=== PATIENT | male | born 2000 | race Two or more races ===

== ENCOUNTER 2022-08-15 14:19 | Inpatient (IN) | payer OTHER ==
[~2022-08-15] VITALS: Ht 177.8 cm; Wt 75.0 kg
[2022-08-15 16:44] LABS: BASOPHILS % (AUTO) 0.4 % (0.0-2.0); EOSINOPHILS % (AUTO) 1.6 % (1.0-6.0); HEMOGLOBIN 14.2 g/dL (13.5-17.5); LYMPHOCYTES # (AUTO) 1.6 K/uL (1.0-4.8); LYMPHOCYTES % (AUTO) 26.4 % (22.0-44.0); MEAN CORPUSCULAR HEMOGLOBIN 29.6 pg (26.0-34.0); MEAN CORPUSCULAR HGB CONC 33.9 G/dL (31.0-37.0); MEAN CORPUSCULAR VOLUME 87 fL (80-100); MONOCYTES # (AUTO) 0.5 K/uL (0.1-1.0); MONOCYTES % (AUTO) 7.5 % (2.0-9.0); NEUTROPHILS % (AUTO) 64.1 % (40.0-70.0); PLATELET COUNT (AUTO) 167 K/uL (150-450); RED BLOOD CELL COUNT(AUTO) 4.81 MIL/uL (4.50-5.90)
[2022-08-15 17:14] LABS: ANION GAP 10 mmol/L (8-16); CALCIUM, TOTAL 9.1 mg/dL (8.8-10.5); CARBON DIOXIDE 26 mmol/L (22-29); CHLORIDE 101 mmol/L (98-107); CREATININE 0.95 mg/dL (0.60-1.30); GLOMERULAR FILTR. RATE CALC > 60 mL/min (>60); GLUCOSE,RANDOM 82 mg/dL (70-110); POTASSIUM 3.8 mmol/L (3.5-5.1); SODIUM SERUM 137 mmol/L (136-145); UREA NITROGEN, BLOOD 22 mg/dL (7-18)
[2022-08-15 17:19] LABS: ALANINE AMINOTRANSFERASE 14 U/L (12-78); ALBUMIN 4.6 g/dL (3.4-5.0); ALKALINE PHOSPHATASE 78 U/L (46-116); ASPARTATE AMINOTRANSFERASE 20 U/L (15-37); BILIRUBIN,TOTAL 1.3 mg/dL (0.1-1.0); TOTAL PROTEIN, SERUM 8.4 g/dL (6.4-8.2)
[2022-08-15 20:35] LABS: COVID AG,FIA SOURCE NASAL SWAB
[2022-08-15] MEDS ORDERED: SODIUM CHLORIDE 0.9% 500 ML IV ONE (21:30)
[2022-08-15] MEDS ORDERED: MAGNESIUM HYDROXIDE SUSPENSION 30 ML UDCUP PO PRN (21:30)
[2022-08-15] MEDS ORDERED: IPRATROPIUM BROMIDE 0.5 MG/2.5 ML NEB SOLUTION NEB PRN (21:30)
[2022-08-15] MEDS ORDERED: ACETAMINOPHEN 325 MG TABLET PO PRN (21:30)
[2022-08-15] MEDS ORDERED: BISACODYL 10 MG RECTAL RECTAL SUPPOSITORY PR PRN (21:30)
[2022-08-15] MEDS ORDERED: ALBUTEROL SULFATE 2.5 MG/0.5 ML NEB SOLUTION NEB PRN (21:30)
[2022-08-15] MEDS ORDERED: ONDANSETRON HCL 4 MG/2 ML VIAL IVP PRN (21:30)
[2022-08-15] MEDS ORDERED: ZOLPIDEM TARTRATE 5 MG TABLET PO PRN (21:30)
[2022-08-15] MEDS ORDERED: DiphenhydrAMINE HCL 50 MG/ML VIAL IM ONE (22:15)
[2022-08-15] MEDS ORDERED: HALOPERIDOL LACTATE 5 MG/ML VIAL IM ONE (22:15)
[2022-08-15] MEDS ORDERED: LORazepam 2 MG/ML VIAL IM ONE (22:15)
[2022-08-15 23:21] VITALS: BP 109/53
[2022-08-16 05:00] VITALS: BP 118/67
[2022-08-16] MEDS: HEPARIN SODIUM,PORCINE 5,000 UNITS/ML VIAL SQ SCH ×4 (08:00→23:08)
[2022-08-16 08:51] VITALS: BP 103/55
[2022-08-16] MEDS ORDERED: PANTOPRAZOLE SODIUM 40 MG/VIAL IVP SCH (09:00)
[2022-08-16 10:48] LABS: AMPHET/METH SCREEN,URINE NEGATIVE (NEGATIVE); BARBITURATE SCREEN, URINE NEGATIVE (NEGATIVE); BENZODIAZEPINES SCREEN,URINE NEGATIVE (NEGATIVE); CANNABINOID SCREEN,URINE NEGATIVE (NEGATIVE); COCAINE SCREEN,URINE NEGATIVE (NEGATIVE); METHADONE SCREEN, URINE NEGATIVE (NEGATIVE); OPIATE SCREEN,URINE NEGATIVE (NEGATIVE)
[2022-08-16 10:50] LABS: PHENCYCLIDINE SCREEN,URINE NEGATIVE (NEGATIVE)
[2022-08-16 16:23] VITALS: BP 110/69
[2022-08-16 20:00] VITALS: BP 125/60
[2022-08-17] MEDS: HEPARIN SODIUM,PORCINE 5,000 UNITS/ML VIAL SQ SCH ×2 (08:00→16:00)
[2022-08-17] MEDS: PANTOPRAZOLE SODIUM 40 MG DR TABLET PO SCH (08:00)
[2022-08-17] MEDS ORDERED: LORazepam 2 MG/ML VIAL IM ONE (21:00)
[2022-08-17] MEDS ORDERED: DiphenhydrAMINE HCL 50 MG/ML VIAL IM ONE (21:00)
[2022-08-17] MEDS ORDERED: HALOPERIDOL LACTATE 5 MG/ML VIAL IM ONE (21:00)
[2022-08-18 05:44] VITALS: BP 100/50
[2022-08-18] MEDS: PANTOPRAZOLE SODIUM 40 MG DR TABLET PO SCH (08:00)
[2022-08-18] MEDS: HEPARIN SODIUM,PORCINE 5,000 UNITS/ML VIAL SQ SCH ×3 (08:00→16:00)
[2022-08-18 19:30] VITALS: BP 133/66
[2022-08-19] MEDS: HEPARIN SODIUM,PORCINE 5,000 UNITS/ML VIAL SQ SCH ×3 (08:00→16:00)
[2022-08-19] MEDS: PANTOPRAZOLE SODIUM 40 MG DR TABLET PO SCH (08:00)
[2022-08-19] MEDS ORDERED: HALOPERIDOL LACTATE 5 MG/ML VIAL IM ONE (17:30)
[2022-08-19] MEDS ORDERED: DiphenhydrAMINE HCL 50 MG/ML VIAL IM ONE (17:30)
[2022-08-19] MEDS ORDERED: LORazepam 2 MG/ML VIAL IM ONE (17:30)
[2022-08-19 21:33] VITALS: BP 106/58
[2022-08-20] MEDS: HEPARIN SODIUM,PORCINE 5,000 UNITS/ML VIAL SQ SCH ×4 (08:00→23:41)
[2022-08-20] MEDS: PANTOPRAZOLE SODIUM 40 MG DR TABLET PO SCH (08:00)
[2022-08-20 08:17] VITALS: BP 97/75
[2022-08-20] MEDS ORDERED: DiphenhydrAMINE HCL 50 MG/ML VIAL ONE (14:39)
[2022-08-20] MEDS ORDERED: HALOPERIDOL LACTATE 5 MG/ML VIAL ONE (14:39)
[2022-08-20] MEDS ORDERED: LORazepam 2 MG/ML VIAL ONE (14:40)
[2022-08-20] MEDS ORDERED: HALOPERIDOL LACTATE 5 MG/ML VIAL IM ONE (14:45)
[2022-08-20] MEDS ORDERED: LORazepam 2 MG/ML VIAL IM ONE (14:45)
[2022-08-20] MEDS ORDERED: DiphenhydrAMINE HCL 50 MG/ML VIAL IM ONE (14:45)
[2022-08-20 20:20] VITALS: BP 112/54
[2022-08-21] MEDS: HEPARIN SODIUM,PORCINE 5,000 UNITS/ML VIAL SQ SCH ×3 (08:00→23:19)
[2022-08-21] MEDS: PANTOPRAZOLE SODIUM 40 MG DR TABLET PO SCH (08:00)
[2022-08-21] MEDS ORDERED: HALOPERIDOL LACTATE 5 MG/ML VIAL IM ONE (22:45)
[2022-08-22] MEDS: PANTOPRAZOLE SODIUM 40 MG DR TABLET PO SCH (08:00)
[2022-08-22] MEDS: HEPARIN SODIUM,PORCINE 5,000 UNITS/ML VIAL SQ SCH (08:00)
== END 2022-08-22 15:27 | DRG 641 ==
LOC: EMS 14:23 → 6S 21:30
PROVIDERS: ADMIT Hospitalist; ATTEND Hospitalist
DX: E86.0 Dehydration (principal); F29 Unspecified psychosis not due to a substance or known physiological condition; R00.0 Tachycardia, unspecified; F94.0 Selective mutism; Z20.822 Contact with and (suspected) exposure to COVID-19; Z79.899 Other long term (current) drug therapy
CPT/HCPCS: 80053; 80307; 85025; 99285; C9113; G0480; J1200; J1630; J1644; J2060; J7040

== ENCOUNTER 2022-09-11 10:39 | Inpatient (IN) | payer OTHER ==
[~2022-09-11] VITALS: Ht 172.7 cm; Wt 60.3 kg
[2022-09-11 11:53] LABS: COVID AG,FIA SOURCE NASAL SWAB
[2022-09-11 12:02] LABS: ANION GAP 11 mmol/L (8-16); CALCIUM, TOTAL 9.4 mg/dL (8.8-10.5); CARBON DIOXIDE 31 mmol/L (22-29); CHLORIDE 105 mmol/L (98-107); CREATININE 1.03 mg/dL (0.60-1.30); GLOMERULAR FILTR. RATE CALC > 60 mL/min (>60); GLUCOSE,RANDOM 92 mg/dL (70-110); POTASSIUM 4.2 mmol/L (3.5-5.1); SODIUM SERUM 147 mmol/L (136-145); UREA NITROGEN, BLOOD 31 mg/dL (7-18)
[2022-09-11 12:06] LABS: BASOPHILS % (AUTO) 0.5 % (0.0-2.0); EOSINOPHILS % (AUTO) 3.2 % (1.0-6.0); HEMATOCRIT 43.9 % (41-53); HEMOGLOBIN 15.2 g/dL (13.5-17.5); LYMPHOCYTES # (AUTO) 1.6 K/uL (1.0-4.8); LYMPHOCYTES % (AUTO) 28.1 % (22.0-44.0); MEAN CORPUSCULAR HEMOGLOBIN 30.1 pg (26.0-34.0); MEAN CORPUSCULAR HGB CONC 34.6 G/dL (31.0-37.0); MEAN CORPUSCULAR VOLUME 87 fL (80-100); MONOCYTES # (AUTO) 0.4 K/uL (0.1-1.0); MONOCYTES % (AUTO) 6.5 % (2.0-9.0); NEUTROPHILS # (AUTO) 3.4 K/uL (1.8-7.7); NEUTROPHILS % (AUTO) 61.7 % (40.0-70.0); PLATELET COUNT (AUTO) 153 K/uL (150-450); RED BLOOD CELL COUNT(AUTO) 5.03 MIL/uL (4.50-5.90); RED CELL DISTRIBUTION WIDTH 13.5 % (11.5-14.5)
[2022-09-11 12:08] LABS: ALANINE AMINOTRANSFERASE 30 U/L (12-78); ALKALINE PHOSPHATASE 76 U/L (46-116); ASPARTATE AMINOTRANSFERASE 28 U/L (15-37); BILIRUBIN,TOTAL 1.4 mg/dL (0.1-1.0); PHOSPHORUS 4.1 mg/dL (2.5-4.9); TOTAL PROTEIN, SERUM 8.2 g/dL (6.4-8.2)
[2022-09-11 12:13] LABS: INR 1.1 (0.9-1.1); PROTHROMBIN TIME 12.1 SEC (9.4-11.6)
[2022-09-11] MEDS: MULTIVITAMINS WITH MINERALS, THERAPEUTIC TABLET PO SCH (12:15)
[2022-09-11] MEDS ORDERED: ONDANSETRON HCL 4 MG/2 ML VIAL IVP PRN (12:30)
[2022-09-11] MEDS ORDERED: BISACODYL 10 MG RECTAL RECTAL SUPPOSITORY PR PRN (12:30)
[2022-09-11] MEDS ORDERED: ACETAMINOPHEN 325 MG TABLET PO PRN (12:30)
[2022-09-11] MEDS ORDERED: MAGNESIUM HYDROXIDE SUSPENSION 30 ML UDCUP PO PRN (12:30)
[2022-09-11] MEDS: DEXTROSE 5%-0.45% SODIUM CHL 1,000 ML IV SCH (12:55)
[2022-09-11 20:58] VITALS: BP 105/58
[2022-09-11] MEDS: HEPARIN SODIUM,PORCINE 5,000 UNITS/ML VIAL SQ SCH (21:49)
[2022-09-12] MEDS: DEXTROSE 5%-0.45% SODIUM CHL 1,000 ML IV SCH (02:22)
[2022-09-12 05:19] VITALS: BP 118/70
[2022-09-12] MEDS ORDERED: *CLINICAL-PERIPHERAL PARENTERAL NUTRITION DOSING CLINICAL ONE (07:30)
[2022-09-12 07:46] VITALS: BP 122/72
[2022-09-12] MEDS: MULTIVITAMINS WITH MINERALS, THERAPEUTIC TABLET PO SCH (09:00)
[2022-09-12] MEDS: HEPARIN SODIUM,PORCINE 5,000 UNITS/ML VIAL SQ SCH ×2 (09:00→21:18)
[2022-09-12] MEDS: FAMOTIDINE 20 MG TABLET PO SCH (09:00)
[2022-09-12 11:00] LABS: ANION GAP 8 mmol/L (8-16); CALCIUM, TOTAL 9.6 mg/dL (8.8-10.5); CARBON DIOXIDE 30 mmol/L (22-29); CHLORIDE 110 mmol/L (98-107); CREATININE 1.02 mg/dL (0.60-1.30); GLOMERULAR FILTR. RATE CALC > 60 mL/min (>60); GLUCOSE,RANDOM 124 mg/dL (70-110); PHOSPHORUS 4.4 mg/dL (2.5-4.9); POTASSIUM 3.6 mmol/L (3.5-5.1); SODIUM SERUM 148 mmol/L (136-145); UREA NITROGEN, BLOOD 27 mg/dL (7-18)
[2022-09-12] MEDS: AA 4.25%/CALCIUM/LYTES/D5W 1,000 ML IV SCH (12:17)
[2022-09-12 20:12] VITALS: BP 121/79
[2022-09-13] MEDS: AA 4.25%/CALCIUM/LYTES/D5W 1,000 ML IV SCH (02:20)
[2022-09-13 02:28] VITALS: BP 112/91
[2022-09-13] MEDS: HEPARIN SODIUM,PORCINE 5,000 UNITS/ML VIAL SQ SCH ×3 (09:00→20:43)
[2022-09-13] MEDS: MULTIVITAMINS WITH MINERALS, THERAPEUTIC TABLET PO SCH (09:00)
[2022-09-13] MEDS: FAMOTIDINE 20 MG TABLET PO SCH (09:00)
[2022-09-13 20:38] VITALS: BP 94/56
[2022-09-14 05:38] VITALS: BP 90/57
[2022-09-14] MEDS: MULTIVITAMINS WITH MINERALS, THERAPEUTIC TABLET PO SCH (09:00)
[2022-09-14] MEDS: HEPARIN SODIUM,PORCINE 5,000 UNITS/ML VIAL SQ SCH ×2 (09:00→21:00)
[2022-09-14] MEDS: FAMOTIDINE 20 MG TABLET PO SCH (09:00)
[2022-09-14 20:14] VITALS: BP 121/52
[2022-09-15 05:19] VITALS: BP 125/66
[2022-09-15] MEDS: FAMOTIDINE 20 MG TABLET PO SCH (08:12)
[2022-09-15] MEDS: MULTIVITAMINS WITH MINERALS, THERAPEUTIC TABLET PO SCH (08:12)
[2022-09-15] MEDS: HEPARIN SODIUM,PORCINE 5,000 UNITS/ML VIAL SQ SCH ×2 (08:12→21:00)
[2022-09-15 16:32] VITALS: BP 85/52
[2022-09-15 17:26] VITALS: BP 115/66
[2022-09-15 21:32] VITALS: BP 114/52
[2022-09-16 05:33] VITALS: BP 128/79
[2022-09-16 07:37] VITALS: BP 122/76
[2022-09-16] MEDS: HEPARIN SODIUM,PORCINE 5,000 UNITS/ML VIAL SQ SCH ×2 (08:23→21:00)
[2022-09-16] MEDS: MULTIVITAMINS WITH MINERALS, THERAPEUTIC TABLET PO SCH (08:23)
[2022-09-16] MEDS: FAMOTIDINE 20 MG TABLET PO SCH (08:23)
[2022-09-17 04:30] VITALS: BP 147/90
[2022-09-17] MEDS: MULTIVITAMINS WITH MINERALS, THERAPEUTIC TABLET PO SCH (09:00)
[2022-09-17] MEDS: FAMOTIDINE 20 MG TABLET PO SCH (11:12)
[2022-09-17] MEDS: HEPARIN SODIUM,PORCINE 5,000 UNITS/ML VIAL SQ SCH (11:24)
[2022-09-17] MEDS ORDERED: HALOPERIDOL LACTATE 5 MG/ML VIAL IM ONE (11:30)
== END 2022-09-17 15:50 | DRG 640 ==
LOC: EMS 10:45 → 6S 17:59
PROVIDERS: ADMIT Psychiatry & Neurology Child & Adolescent Psychiatry; ATTEND Psychiatry & Neurology Child & Adolescent Psychiatry
DX: E87.0 Hyperosmolality and hypernatremia (principal); E43 Unspecified severe protein-calorie malnutrition; R64 Cachexia; F33.2 Major depressive disorder, recurrent severe without psychotic features; R62.7 Adult failure to thrive; F91.8 Other conduct disorders; F41.9 Anxiety disorder, unspecified; Z20.822 Contact with and (suspected) exposure to COVID-19; Z68.20 Body mass index [BMI] 20.0-20.9, adult; Z79.899 Other long term (current) drug therapy; Z76.5 Malingerer [conscious simulation]
CPT/HCPCS: 80048; 80053; 83735; 84100; 85025; 85610; 85730; 93005; 99285; J1630; J1644

== ENCOUNTER 2022-09-22 12:40 | Inpatient (IN) | payer OTHER ==
[~2022-09-22] VITALS: Ht 180.3 cm; Wt 71.4 kg
[2022-09-22] MEDS ORDERED: OLAN10TA74 PO (13:51)
[2022-09-22 14:01] LABS: COVID AG,FIA SOURCE NASOPHARYNGEAL
[2022-09-22 14:05] LABS: BASOPHILS % (AUTO) 0.4 % (0.0-2.0); EOSINOPHILS % (AUTO) 1.2 % (1.0-6.0); HEMATOCRIT 44.6 % (41-53); LYMPHOCYTES # (AUTO) 1.6 K/uL (1.0-4.8); LYMPHOCYTES % (AUTO) 24.2 % (22.0-44.0); MEAN CORPUSCULAR HEMOGLOBIN 29.1 pg (26.0-34.0); MEAN CORPUSCULAR HGB CONC 33.6 G/dL (31.0-37.0); MEAN CORPUSCULAR VOLUME 87 fL (80-100); MONOCYTES # (AUTO) 0.5 K/uL (0.1-1.0); MONOCYTES % (AUTO) 7.4 % (2.0-9.0); NEUTROPHILS # (AUTO) 4.5 K/uL (1.8-7.7); NEUTROPHILS % (AUTO) 66.8 % (40.0-70.0); PLATELET COUNT (AUTO) 163 K/uL (150-450); RED BLOOD CELL COUNT(AUTO) 5.16 MIL/uL (4.50-5.90); RED CELL DISTRIBUTION WIDTH 13.3 % (11.5-14.5)
[2022-09-22 14:12] LABS: ANION GAP 9 mmol/L (8-16); CALCIUM, TOTAL 9.7 mg/dL (8.8-10.5); CARBON DIOXIDE 27 mmol/L (22-29); CHLORIDE 97 mmol/L (98-107); CREATININE 0.86 mg/dL (0.60-1.30); GLOMERULAR FILTR. RATE CALC > 60 mL/min (>60); GLUCOSE,RANDOM 90 mg/dL (70-110); POTASSIUM 3.8 mmol/L (3.5-5.1); SODIUM SERUM 133 mmol/L (136-145); UREA NITROGEN, BLOOD 20 mg/dL (7-18)
[2022-09-22 14:17] LABS: ALANINE AMINOTRANSFERASE 26 U/L (12-78); ALBUMIN 4.5 g/dL (3.4-5.0); ALKALINE PHOSPHATASE 66 U/L (46-116); ASPARTATE AMINOTRANSFERASE 23 U/L (15-37); BILIRUBIN,TOTAL 0.7 mg/dL (0.1-1.0); TOTAL PROTEIN, SERUM 7.8 g/dL (6.4-8.2)
[2022-09-22 17:14] VITALS: BP 125/93
[2022-09-22] MEDS: DEXTROSE 5%-0.9% SODIUM CHL 1,000 ML IV SCH (17:45)
[2022-09-22] MEDS ORDERED: MAGNESIUM HYDROXIDE SUSPENSION 30 ML UDCUP PO PRN (17:45)
[2022-09-22] MEDS ORDERED: ONDANSETRON HCL 4 MG/2 ML VIAL IVP PRN (17:45)
[2022-09-22] MEDS ORDERED: ALBUTEROL SULFATE 2.5 MG/0.5 ML NEB SOLUTION NEB PRN (17:45)
[2022-09-22] MEDS ORDERED: IPRATROPIUM BROMIDE 0.5 MG/2.5 ML NEB SOLUTION NEB PRN (17:45)
[2022-09-22] MEDS ORDERED: BISACODYL 10 MG RECTAL RECTAL SUPPOSITORY PR PRN (17:45)
[2022-09-22 19:30] VITALS: BP 102/70
[2022-09-23 04:35] VITALS: BP 118/60
[2022-09-23] MEDS: DEXTROSE 5%-0.9% SODIUM CHL 1,000 ML IV SCH (07:05)
[2022-09-23 07:51] VITALS: BP 112/58
[2022-09-23] MEDS: HEPARIN SODIUM,PORCINE 5,000 UNITS/ML VIAL SQ SCH ×4 (08:00→22:43)
[2022-09-23] MEDS: PANTOPRAZOLE SODIUM 40 MG DR TABLET PO SCH (09:00)
[2022-09-23 19:29] VITALS: BP 114/57
[2022-09-24 05:10] VITALS: BP 96/49
[2022-09-24] MEDS: HEPARIN SODIUM,PORCINE 5,000 UNITS/ML VIAL SQ SCH ×3 (08:00→23:15)
[2022-09-24] MEDS: PANTOPRAZOLE SODIUM 40 MG DR TABLET PO SCH (09:00)
[2022-09-24 09:34] VITALS: BP 106/55
[2022-09-24] MEDS: DEXTROSE 5%-0.9% SODIUM CHL 1,000 ML IV SCH ×2 (09:34→23:05)
[2022-09-24 15:08] VITALS: BP 110/54
[2022-09-24 20:50] VITALS: BP 114/59
[2022-09-25 04:30] VITALS: BP 112/68
[2022-09-25] MEDS: PANTOPRAZOLE SODIUM 40 MG DR TABLET PO SCH (09:00)
[2022-09-25 09:02] VITALS: BP 106/65
[2022-09-25] MEDS: HEPARIN SODIUM,PORCINE 5,000 UNITS/ML VIAL SQ SCH ×2 (09:07→16:00)
[2022-09-25 16:42] VITALS: BP 98/54
[2022-09-25 20:00] VITALS: BP 97/45
[2022-09-26 05:04] VITALS: BP 110/55
[2022-09-26] MEDS: HEPARIN SODIUM,PORCINE 5,000 UNITS/ML VIAL SQ SCH ×4 (08:00→23:51)
[2022-09-26] MEDS: PANTOPRAZOLE SODIUM 40 MG DR TABLET PO SCH (08:29)
[2022-09-26 14:56] VITALS: BP 108/58
[2022-09-26] MEDS: LORazepam 2 MG/ML VIAL IM SCH (17:40)
[2022-09-26 20:02] VITALS: BP 112/63
[2022-09-27] MEDS: LORazepam 2 MG/ML VIAL IM SCH ×2 (06:00→09:49)
[2022-09-27] MEDS: PANTOPRAZOLE SODIUM 40 MG DR TABLET PO SCH (08:42)
[2022-09-27] MEDS: HEPARIN SODIUM,PORCINE 5,000 UNITS/ML VIAL SQ SCH ×3 (08:42→23:10)
[2022-09-27 16:26] VITALS: BP 107/52
[2022-09-27 19:16] VITALS: BP 106/62
[2022-09-28 03:55] VITALS: BP 103/70
[2022-09-28] MEDS: LORazepam 2 MG/ML VIAL IM SCH ×2 (05:25→18:03)
[2022-09-28 07:38] VITALS: BP 105/65
[2022-09-28] MEDS: HEPARIN SODIUM,PORCINE 5,000 UNITS/ML VIAL SQ SCH ×2 (08:00→16:56)
[2022-09-28] MEDS: PANTOPRAZOLE SODIUM 40 MG DR TABLET PO SCH (09:00)
[2022-09-28 14:56] VITALS: BP 118/71
[2022-09-29] MEDS: LORazepam 2 MG/ML VIAL IM SCH ×2 (05:44→18:43)
[2022-09-29] MEDS: PANTOPRAZOLE SODIUM 40 MG DR TABLET PO SCH (07:36)
[2022-09-29] MEDS: HEPARIN SODIUM,PORCINE 5,000 UNITS/ML VIAL SQ SCH ×4 (07:36→23:11)
[2022-09-29 19:50] VITALS: BP 119/85
[2022-09-30] MEDS: LORazepam 2 MG/ML VIAL IM SCH ×2 (05:32→18:29)
[2022-09-30 05:48] VITALS: BP 127/85
[2022-09-30 07:51] VITALS: BP 120/83
[2022-09-30] MEDS: HEPARIN SODIUM,PORCINE 5,000 UNITS/ML VIAL SQ SCH ×2 (08:00→16:00)
[2022-09-30] MEDS: PANTOPRAZOLE SODIUM 40 MG DR TABLET PO SCH (08:26)
[2022-09-30 19:56] VITALS: BP 112/67
[2022-10-01] MEDS: HEPARIN SODIUM,PORCINE 5,000 UNITS/ML VIAL SQ SCH ×4 (00:03→23:39)
[2022-10-01] MEDS: LORazepam 2 MG/ML VIAL IM SCH ×2 (05:37→18:10)
[2022-10-01 08:03] VITALS: BP 106/68
[2022-10-01] MEDS: PANTOPRAZOLE SODIUM 40 MG DR TABLET PO SCH (08:03)
[2022-10-01 16:13] VITALS: BP 129/70
[2022-10-01 20:22] VITALS: BP 136/91
[2022-10-02 03:33] VITALS: BP 127/71
[2022-10-02] MEDS: LORazepam 2 MG/ML VIAL IM SCH ×3 (06:21→21:20)
[2022-10-02] MEDS: HEPARIN SODIUM,PORCINE 5,000 UNITS/ML VIAL SQ SCH ×3 (08:00→23:05)
[2022-10-02] MEDS: PANTOPRAZOLE SODIUM 40 MG DR TABLET PO SCH (08:53)
[2022-10-02 15:44] VITALS: BP 117/72
[2022-10-02 20:03] VITALS: BP 112/72
[2022-10-03 05:24] VITALS: BP 110/67
[2022-10-03] MEDS: LORazepam 2 MG/ML VIAL IM SCH ×3 (08:08→21:40)
[2022-10-03] MEDS: HEPARIN SODIUM,PORCINE 5,000 UNITS/ML VIAL SQ SCH ×3 (08:08→23:48)
[2022-10-03] MEDS: PANTOPRAZOLE SODIUM 40 MG DR TABLET PO SCH (08:11)
[2022-10-03 20:51] VITALS: BP 104/59
[2022-10-04 07:33] VITALS: BP 109/67
[2022-10-04] MEDS: HEPARIN SODIUM,PORCINE 5,000 UNITS/ML VIAL SQ SCH ×3 (08:00→23:12)
[2022-10-04] MEDS: LORazepam 2 MG/ML VIAL IM SCH ×3 (08:33→21:02)
[2022-10-04] MEDS: PANTOPRAZOLE SODIUM 40 MG DR TABLET PO SCH (08:38)
[2022-10-04 15:01] VITALS: BP 126/76
[2022-10-04 20:00] VITALS: BP 123/60
[2022-10-04] MEDS: OLANZapine 5 MG RAPDIS TABLET PO SCH (21:02)
[2022-10-05 06:08] VITALS: BP 137/82
[2022-10-05] MEDS: LORazepam 2 MG/ML VIAL IM SCH ×3 (06:14→22:17)
[2022-10-05] MEDS: ACETAMINOPHEN 325 MG TABLET PO PRN (06:58)
[2022-10-05 08:00] VITALS: BP 125/76
[2022-10-05] MEDS: HEPARIN SODIUM,PORCINE 5,000 UNITS/ML VIAL SQ SCH ×3 (08:00→17:03)
[2022-10-05] MEDS: PANTOPRAZOLE SODIUM 40 MG DR TABLET PO SCH (10:42)
[2022-10-05] MEDS: OLANZapine 5 MG RAPDIS TABLET PO SCH ×2 (10:42→22:17)
[2022-10-05 19:30] VITALS: BP 108/58
[2022-10-06] MEDS: HEPARIN SODIUM,PORCINE 5,000 UNITS/ML VIAL SQ SCH ×4 (08:31→23:06)
[2022-10-06] MEDS: PANTOPRAZOLE SODIUM 40 MG DR TABLET PO SCH (08:31)
[2022-10-06] MEDS: OLANZapine 5 MG RAPDIS TABLET PO SCH ×2 (08:31→22:01)
[2022-10-06] MEDS: LORazepam 2 MG/ML VIAL IM SCH ×3 (08:32→20:59)
[2022-10-06 15:00] VITALS: BP 125/75
[2022-10-06 21:04] VITALS: BP 109/62
[2022-10-06] MEDS ORDERED: DiphenhydrAMINE HCL 50 MG/ML VIAL IM PRN (23:00)
[2022-10-07] MEDS: HEPARIN SODIUM,PORCINE 5,000 UNITS/ML VIAL SQ SCH ×4 (08:00→23:02)
[2022-10-07] MEDS: LORazepam 2 MG/ML VIAL IM SCH ×3 (08:41→20:34)
[2022-10-07 08:50] VITALS: BP 114/67
[2022-10-07] MEDS: OLANZapine 5 MG RAPDIS TABLET PO SCH ×2 (09:00→21:00)
[2022-10-07] MEDS: PANTOPRAZOLE SODIUM 40 MG DR TABLET PO SCH (09:00)
[2022-10-07 15:20] VITALS: BP 117/69
[2022-10-08] MEDS: LORazepam 2 MG/ML VIAL IM SCH ×3 (09:00→20:15)
[2022-10-08] MEDS: HEPARIN SODIUM,PORCINE 5,000 UNITS/ML VIAL SQ SCH ×3 (09:01→23:18)
[2022-10-08] MEDS: OLANZapine 5 MG RAPDIS TABLET PO SCH ×2 (11:01→20:15)
[2022-10-08] MEDS: PANTOPRAZOLE SODIUM 40 MG DR TABLET PO SCH (11:01)
[2022-10-08 20:32] VITALS: BP 106/66
[2022-10-08] MEDS ORDERED: LORazepam 2 MG/ML VIAL IM ONE (21:15)
[2022-10-08] MEDS ORDERED: DiphenhydrAMINE HCL 50 MG/ML VIAL IM ONE (21:15)
[2022-10-08] MEDS ORDERED: HALOPERIDOL LACTATE 5 MG/ML VIAL IM ONE (21:15)
[2022-10-08 22:49] VITALS: BP 99/48
[2022-10-09] MEDS: HEPARIN SODIUM,PORCINE 5,000 UNITS/ML VIAL SQ SCH ×4 (08:00→23:57)
[2022-10-09] MEDS: LORazepam 2 MG/ML VIAL IM SCH ×4 (08:23→21:00)
[2022-10-09] MEDS: PANTOPRAZOLE SODIUM 40 MG DR TABLET PO SCH (09:34)
[2022-10-09] MEDS: OLANZapine 5 MG RAPDIS TABLET PO SCH (09:34)
[2022-10-09 09:40] VITALS: BP 107/62
[2022-10-09 16:00] VITALS: BP 104/57
[2022-10-09 19:34] VITALS: BP 98/59
[2022-10-09] MEDS ORDERED: OLANZapine 5 MG RAPDIS TABLET PO SCH (21:00)
[2022-10-10] MEDS: HEPARIN SODIUM,PORCINE 5,000 UNITS/ML VIAL SQ SCH ×2 (08:00→15:36)
[2022-10-10] MEDS: LORazepam 2 MG/ML VIAL IM SCH ×3 (08:21→20:29)
[2022-10-10 08:23] VITALS: BP 103/45
[2022-10-10] MEDS: PANTOPRAZOLE SODIUM 40 MG DR TABLET PO SCH (09:00)
[2022-10-10] MEDS: OLANZapine 10 MG RAPDIS TABLET PO SCH ×2 (09:00→21:00)
[2022-10-10 17:34] VITALS: BP 128/65
[2022-10-11] MEDS: HEPARIN SODIUM,PORCINE 5,000 UNITS/ML VIAL SQ SCH ×4 (00:24→23:22)
[2022-10-11] MEDS: OLANZapine 10 MG RAPDIS TABLET PO SCH ×2 (08:35→21:54)
[2022-10-11] MEDS: PANTOPRAZOLE SODIUM 40 MG DR TABLET PO SCH (08:35)
[2022-10-11] MEDS: LORazepam 2 MG/ML VIAL IM SCH ×3 (08:35→21:54)
[2022-10-12] MEDS: OLANZapine 10 MG RAPDIS TABLET PO SCH ×2 (09:00→20:34)
[2022-10-12] MEDS: PANTOPRAZOLE SODIUM 40 MG DR TABLET PO SCH (09:25)
[2022-10-12] MEDS: HEPARIN SODIUM,PORCINE 5,000 UNITS/ML VIAL SQ SCH ×2 (09:26→16:09)
[2022-10-12] MEDS: LORazepam 2 MG/ML VIAL IM SCH ×2 (09:42→20:34)
[2022-10-12 15:15] VITALS: BP 106/64
[2022-10-13] MEDS: HEPARIN SODIUM,PORCINE 5,000 UNITS/ML VIAL SQ SCH ×6 (00:11→23:45)
[2022-10-13 06:18] VITALS: BP 108/67
[2022-10-13 07:21] VITALS: BP 110/68
[2022-10-13] MEDS: LORazepam 2 MG/ML VIAL IM SCH ×2 (08:53→21:00)
[2022-10-13] MEDS: PANTOPRAZOLE SODIUM 40 MG DR TABLET PO SCH (09:00)
[2022-10-13] MEDS: OLANZapine 10 MG RAPDIS TABLET PO SCH ×2 (12:00→17:31)
[2022-10-13 19:49] VITALS: BP 107/65
[2022-10-14 07:30] VITALS: BP 106/60
[2022-10-14] MEDS: OLANZapine 10 MG RAPDIS TABLET PO SCH ×2 (08:00→18:00)
[2022-10-14] MEDS: HEPARIN SODIUM,PORCINE 5,000 UNITS/ML VIAL SQ SCH ×3 (08:36→23:15)
[2022-10-14] MEDS: LORazepam 2 MG/ML VIAL IM SCH ×2 (08:36→20:20)
[2022-10-14] MEDS: PANTOPRAZOLE SODIUM 40 MG DR TABLET PO SCH (08:43)
[2022-10-15 04:18] VITALS: BP 101/56
[2022-10-15] MEDS: HEPARIN SODIUM,PORCINE 5,000 UNITS/ML VIAL SQ SCH ×3 (07:54→23:19)
[2022-10-15] MEDS: PANTOPRAZOLE SODIUM 40 MG DR TABLET PO SCH (07:58)
[2022-10-15] MEDS: LORazepam 2 MG/ML VIAL IM SCH ×2 (07:58→20:11)
[2022-10-15] MEDS: OLANZapine 10 MG RAPDIS TABLET PO SCH ×3 (07:59→18:00)
[2022-10-15] MEDS: ETHYL ALCOHOL 62% ANTISEPTIC NASAL SANITIZER 0.6 ML AMPUL NASAL SCH ×2 (20:10→20:42)
[2022-10-15 20:16] VITALS: BP 134/78
[2022-10-16] MEDS: HEPARIN SODIUM,PORCINE 5,000 UNITS/ML VIAL SQ SCH ×3 (08:12→23:24)
[2022-10-16] MEDS: LORazepam 2 MG/ML VIAL IM SCH ×2 (08:12→20:53)
[2022-10-16 08:21] VITALS: BP 117/72
[2022-10-16] MEDS: ETHYL ALCOHOL 62% ANTISEPTIC NASAL SANITIZER 0.6 ML AMPUL NASAL SCH ×2 (09:00→20:54)
[2022-10-16] MEDS: PANTOPRAZOLE SODIUM 40 MG DR TABLET PO SCH (09:00)
[2022-10-16] MEDS: OLANZapine 10 MG RAPDIS TABLET PO SCH ×2 (12:00→17:49)
[2022-10-16 20:54] VITALS: BP 107/64
[2022-10-17 07:24] VITALS: BP 114/68
[2022-10-17] MEDS: ETHYL ALCOHOL 62% ANTISEPTIC NASAL SANITIZER 0.6 ML AMPUL NASAL SCH ×2 (09:00→20:22)
[2022-10-17] MEDS: PANTOPRAZOLE SODIUM 40 MG DR TABLET PO SCH (09:00)
[2022-10-17] MEDS: LORazepam 2 MG/ML VIAL IM SCH ×2 (11:43→20:19)
[2022-10-17] MEDS: HEPARIN SODIUM,PORCINE 5,000 UNITS/ML VIAL SQ SCH ×3 (11:44→23:12)
[2022-10-17] MEDS: OLANZapine 10 MG RAPDIS TABLET PO SCH ×2 (13:21→18:00)
[2022-10-17 19:34] VITALS: BP 95/63
[2022-10-18] MEDS: HEPARIN SODIUM,PORCINE 5,000 UNITS/ML VIAL SQ SCH ×3 (08:04→23:26)
[2022-10-18] MEDS: ETHYL ALCOHOL 62% ANTISEPTIC NASAL SANITIZER 0.6 ML AMPUL NASAL SCH ×2 (08:04→21:00)
[2022-10-18] MEDS: PANTOPRAZOLE SODIUM 40 MG DR TABLET PO SCH (08:04)
[2022-10-18] MEDS: LORazepam 2 MG/ML VIAL IM SCH ×2 (08:08→20:37)
[2022-10-18] MEDS: OLANZapine 10 MG RAPDIS TABLET PO SCH ×2 (12:00→17:59)
[2022-10-18 15:57] VITALS: BP 107/65
[2022-10-18 20:48] VITALS: BP 101/68
[2022-10-19] MEDS: LORazepam 2 MG/ML VIAL IM SCH ×3 (08:32→20:55)
[2022-10-19] MEDS: PANTOPRAZOLE SODIUM 40 MG DR TABLET PO SCH (08:33)
[2022-10-19] MEDS: ETHYL ALCOHOL 62% ANTISEPTIC NASAL SANITIZER 0.6 ML AMPUL NASAL SCH ×2 (08:33→20:58)
[2022-10-19] MEDS: HEPARIN SODIUM,PORCINE 5,000 UNITS/ML VIAL SQ SCH ×3 (08:33→23:19)
[2022-10-19] MEDS: OLANZapine 10 MG RAPDIS TABLET PO SCH ×3 (12:00→18:12)
[2022-10-19 15:15] VITALS: BP 123/70
[2022-10-19 20:56] VITALS: BP 103/58
[2022-10-20] MEDS: HEPARIN SODIUM,PORCINE 5,000 UNITS/ML VIAL SQ SCH ×3 (08:00→23:35)
[2022-10-20] MEDS: PANTOPRAZOLE SODIUM 40 MG DR TABLET PO SCH (09:00)
[2022-10-20] MEDS: LORazepam 2 MG/ML VIAL IM SCH ×2 (10:44→21:08)
[2022-10-20] MEDS: OLANZapine 10 MG RAPDIS TABLET PO SCH ×2 (12:09→17:45)
[2022-10-21] MEDS: HEPARIN SODIUM,PORCINE 5,000 UNITS/ML VIAL SQ SCH ×3 (08:49→23:41)
[2022-10-21] MEDS: LORazepam 2 MG/ML VIAL IM SCH (08:50)
[2022-10-21] MEDS: PANTOPRAZOLE SODIUM 40 MG DR TABLET PO SCH (08:54)
[2022-10-21] MEDS: OLANZapine 10 MG RAPDIS TABLET PO SCH ×2 (11:52→17:36)
[2022-10-21 21:16] VITALS: BP 123/77
[2022-10-22] MEDS: HEPARIN SODIUM,PORCINE 5,000 UNITS/ML VIAL SQ SCH ×2 (08:42→16:00)
[2022-10-22] MEDS: LORazepam 2 MG/ML VIAL IM SCH (08:42)
[2022-10-22] MEDS: PANTOPRAZOLE SODIUM 40 MG DR TABLET PO SCH (08:45)
[2022-10-22] MEDS: OLANZapine 10 MG RAPDIS TABLET PO SCH ×2 (11:59→18:00)
[2022-10-22] MEDS ORDERED: HALOPERIDOL LACTATE 5 MG/ML VIAL ONE (15:24)
[2022-10-22] MEDS ORDERED: HALOPERIDOL LACTATE 5 MG/ML VIAL IM ONE (15:30)
[2022-10-22] MEDS ORDERED: DiphenhydrAMINE HCL 50 MG/ML VIAL IM ONE (15:30)
[2022-10-22] MEDS ORDERED: LORazepam 2 MG/ML VIAL IM ONE (15:30)
[2022-10-22 19:48] VITALS: BP 96/51
[2022-10-23] MEDS: LORazepam 2 MG/ML VIAL IM SCH (08:08)
[2022-10-23] MEDS: HEPARIN SODIUM,PORCINE 5,000 UNITS/ML VIAL SQ SCH ×4 (08:11→23:51)
[2022-10-23] MEDS: PANTOPRAZOLE SODIUM 40 MG DR TABLET PO SCH (08:11)
[2022-10-23 08:23] VITALS: BP 104/53
[2022-10-23] MEDS: OLANZapine 10 MG RAPDIS TABLET PO SCH ×2 (12:02→17:11)
[2022-10-23 17:38] VITALS: BP 106/59
[2022-10-23 20:28] VITALS: BP 101/62
[2022-10-24] MEDS: PANTOPRAZOLE SODIUM 40 MG DR TABLET PO SCH (09:57)
[2022-10-24] MEDS: HEPARIN SODIUM,PORCINE 5,000 UNITS/ML VIAL SQ SCH ×3 (09:58→23:36)
[2022-10-24] MEDS: OLANZapine 10 MG RAPDIS TABLET PO SCH ×2 (11:54→17:39)
[2022-10-24 19:48] VITALS: BP 110/63
[2022-10-25] MEDS: HEPARIN SODIUM,PORCINE 5,000 UNITS/ML VIAL SQ SCH ×3 (08:00→23:31)
[2022-10-25 08:41] VITALS: BP 113/65
[2022-10-25] MEDS: PANTOPRAZOLE SODIUM 40 MG DR TABLET PO SCH (09:00)
[2022-10-25] MEDS: OLANZapine 10 MG RAPDIS TABLET PO SCH ×2 (13:00→17:53)
[2022-10-25 17:07] VITALS: BP 101/58
[2022-10-25 19:45] VITALS: BP 103/59
[2022-10-26] MEDS: HEPARIN SODIUM,PORCINE 5,000 UNITS/ML VIAL SQ SCH ×5 (08:00→23:35)
[2022-10-26] MEDS: PANTOPRAZOLE SODIUM 40 MG DR TABLET PO SCH (08:39)
[2022-10-26 08:41] VITALS: BP 124/68
[2022-10-26] MEDS: OLANZapine 10 MG RAPDIS TABLET PO SCH ×2 (12:00→18:03)
[2022-10-26] MEDS ORDERED: SODIUM CHLORIDE 0.9% 500 ML IV ONE (15:21)
[2022-10-26 19:25] VITALS: BP 121/69
[2022-10-27] MEDS: PANTOPRAZOLE SODIUM 40 MG DR TABLET PO SCH (09:00)
[2022-10-27] MEDS: HEPARIN SODIUM,PORCINE 5,000 UNITS/ML VIAL SQ SCH ×4 (09:03→23:48)
[2022-10-27] MEDS: OLANZapine 10 MG RAPDIS TABLET PO SCH ×2 (12:00→18:00)
[2022-10-27 15:23] VITALS: BP 113/70
[2022-10-27] MEDS ORDERED: LORazepam 2 MG/ML VIAL ONE (16:17)
[2022-10-27] MEDS ORDERED: HALOPERIDOL LACTATE 5 MG/ML VIAL ONE (16:18)
[2022-10-27] MEDS ORDERED: HALOPERIDOL LACTATE 5 MG/ML VIAL IM ONE (16:30)
[2022-10-27] MEDS ORDERED: LORazepam 2 MG/ML VIAL IM ONE (16:30)
[2022-10-27] MEDS ORDERED: DiphenhydrAMINE HCL 50 MG/ML VIAL IM ONE (16:30)
[2022-10-27 20:48] VITALS: BP 112/69
[2022-10-28] MEDS: HEPARIN SODIUM,PORCINE 5,000 UNITS/ML VIAL SQ SCH ×4 (07:45→23:51)
[2022-10-28] MEDS: PANTOPRAZOLE SODIUM 40 MG DR TABLET PO SCH (09:00)
[2022-10-28] MEDS: OLANZapine 10 MG RAPDIS TABLET PO SCH ×2 (12:36→18:12)
[2022-10-28] MEDS ORDERED: LORazepam 2 MG/ML VIAL ONE (15:09)
[2022-10-28] MEDS ORDERED: HALOPERIDOL LACTATE 5 MG/ML VIAL ONE (15:09)
[2022-10-28] MEDS ORDERED: DiphenhydrAMINE HCL 50 MG/ML VIAL IM ONE (15:15)
[2022-10-28] MEDS ORDERED: LORazepam 2 MG/ML VIAL IM ONE (15:15)
[2022-10-28] MEDS ORDERED: HALOPERIDOL LACTATE 5 MG/ML VIAL IM ONE (15:15)
[2022-10-28 20:09] VITALS: BP 103/57
[2022-10-29] MEDS: HEPARIN SODIUM,PORCINE 5,000 UNITS/ML VIAL SQ SCH ×3 (08:44→23:42)
[2022-10-29] MEDS: PANTOPRAZOLE SODIUM 40 MG DR TABLET PO SCH ×2 (09:00→11:54)
[2022-10-29] MEDS: OLANZapine 10 MG RAPDIS TABLET PO SCH ×3 (11:55→17:41)
[2022-10-29] MEDS ORDERED: LORazepam 2 MG/ML VIAL ONE (13:19)
[2022-10-29] MEDS ORDERED: HALOPERIDOL LACTATE 5 MG/ML VIAL ONE (13:20)
[2022-10-29] MEDS ORDERED: HALOPERIDOL LACTATE 5 MG/ML VIAL IM ONE (13:30)
[2022-10-29] MEDS ORDERED: LORazepam 2 MG/ML VIAL IM ONE (13:30)
[2022-10-29] MEDS ORDERED: DiphenhydrAMINE HCL 50 MG/ML VIAL IM ONE (13:30)
[2022-10-30 05:50] VITALS: BP 115/64
[2022-10-30] MEDS: HEPARIN SODIUM,PORCINE 5,000 UNITS/ML VIAL SQ SCH ×3 (08:00→22:56)
[2022-10-30 08:25] VITALS: BP 115/63
[2022-10-30] MEDS: PANTOPRAZOLE SODIUM 40 MG DR TABLET PO SCH (08:47)
[2022-10-30] MEDS: OLANZapine 10 MG RAPDIS TABLET PO SCH ×2 (12:52→17:34)
[2022-10-30 15:06] VITALS: BP 116/63
[2022-10-31] MEDS: HEPARIN SODIUM,PORCINE 5,000 UNITS/ML VIAL SQ SCH ×2 (08:36→17:21)
[2022-10-31] MEDS: PANTOPRAZOLE SODIUM 40 MG DR TABLET PO SCH (09:00)
[2022-10-31] MEDS: OLANZapine 10 MG RAPDIS TABLET PO SCH ×2 (12:05→17:35)
[2022-11-01] MEDS: HEPARIN SODIUM,PORCINE 5,000 UNITS/ML VIAL SQ SCH ×3 (00:51→16:11)
[2022-11-01 05:31] VITALS: BP 114/73
[2022-11-01] MEDS: PANTOPRAZOLE SODIUM 40 MG DR TABLET PO SCH (09:00)
[2022-11-01] MEDS: OLANZapine 10 MG RAPDIS TABLET PO SCH ×2 (12:00→18:01)
[2022-11-02] MEDS: HEPARIN SODIUM,PORCINE 5,000 UNITS/ML VIAL SQ SCH ×5 (00:21→23:28)
[2022-11-02] MEDS: PANTOPRAZOLE SODIUM 40 MG DR TABLET PO SCH (08:34)
[2022-11-02] MEDS: OLANZapine 10 MG RAPDIS TABLET PO SCH ×2 (12:00→17:51)
[2022-11-02 23:28] VITALS: BP 85/44
[2022-11-03 06:20] VITALS: BP 114/57
[2022-11-03] MEDS: HEPARIN SODIUM,PORCINE 5,000 UNITS/ML VIAL SQ SCH ×2 (08:00→16:00)
[2022-11-03] MEDS: PANTOPRAZOLE SODIUM 40 MG DR TABLET PO SCH (08:41)
[2022-11-03] MEDS: OLANZapine 10 MG RAPDIS TABLET PO SCH ×2 (12:03→17:35)
[2022-11-04] MEDS: HEPARIN SODIUM,PORCINE 5,000 UNITS/ML VIAL SQ SCH ×4 (00:03→23:29)
[2022-11-04 06:59] VITALS: BP 110/49
[2022-11-04] MEDS: PANTOPRAZOLE SODIUM 40 MG DR TABLET PO SCH (08:25)
[2022-11-04] MEDS: OLANZapine 10 MG RAPDIS TABLET PO SCH ×2 (12:05→17:35)
[2022-11-04 19:50] VITALS: BP 111/44
[2022-11-05] MEDS: PANTOPRAZOLE SODIUM 40 MG DR TABLET PO SCH (08:48)
[2022-11-05] MEDS: HEPARIN SODIUM,PORCINE 5,000 UNITS/ML VIAL SQ SCH ×3 (08:48→23:52)
[2022-11-05] MEDS: OLANZapine 10 MG RAPDIS TABLET PO SCH ×2 (12:50→18:37)
[2022-11-05 23:56] VITALS: BP 94/56
[2022-11-06] MEDS: PANTOPRAZOLE SODIUM 40 MG DR TABLET PO SCH (07:51)
[2022-11-06] MEDS: HEPARIN SODIUM,PORCINE 5,000 UNITS/ML VIAL SQ SCH ×5 (07:52→23:22)
[2022-11-06 08:43] VITALS: BP 105/57
[2022-11-06] MEDS: OLANZapine 10 MG RAPDIS TABLET PO SCH ×2 (12:00→17:42)
[2022-11-07 06:23] VITALS: BP 104/58
[2022-11-07] MEDS: HEPARIN SODIUM,PORCINE 5,000 UNITS/ML VIAL SQ SCH ×4 (08:02→23:22)
[2022-11-07] MEDS: PANTOPRAZOLE SODIUM 40 MG DR TABLET PO SCH (08:02)
[2022-11-07] MEDS: OLANZapine 10 MG RAPDIS TABLET PO SCH ×2 (11:47→17:20)
[2022-11-08 05:59] VITALS: BP 130/75
[2022-11-08] MEDS: PANTOPRAZOLE SODIUM 40 MG DR TABLET PO SCH (08:26)
[2022-11-08] MEDS: HEPARIN SODIUM,PORCINE 5,000 UNITS/ML VIAL SQ SCH ×2 (08:27→16:00)
[2022-11-08] MEDS: OLANZapine 10 MG RAPDIS TABLET PO SCH ×2 (12:20→17:58)
[2022-11-09] MEDS: HEPARIN SODIUM,PORCINE 5,000 UNITS/ML VIAL SQ SCH ×3 (08:00→16:00)
[2022-11-09] MEDS: PANTOPRAZOLE SODIUM 40 MG DR TABLET PO SCH (08:52)
[2022-11-09] MEDS: OLANZapine 10 MG RAPDIS TABLET PO SCH ×2 (12:00→18:00)
[2022-11-09 20:00] VITALS: BP 123/76
[2022-11-10] MEDS: HEPARIN SODIUM,PORCINE 5,000 UNITS/ML VIAL SQ SCH ×4 (00:04→23:20)
[2022-11-10] MEDS: PANTOPRAZOLE SODIUM 40 MG DR TABLET PO SCH (08:18)
[2022-11-10 08:40] VITALS: BP 109/73
[2022-11-10] MEDS: OLANZapine 10 MG RAPDIS TABLET PO SCH ×2 (11:43→17:57)
[2022-11-10] MEDS ORDERED: DiphenhydrAMINE HCL 50 MG/ML VIAL IM ONE (13:30)
[2022-11-10] MEDS ORDERED: HALOPERIDOL LACTATE 5 MG/ML VIAL IM ONE (13:30)
[2022-11-10] MEDS ORDERED: LORazepam 2 MG/ML VIAL IM ONE (13:30)
[2022-11-10] MEDS ORDERED: DiphenhydrAMINE HCL 50 MG/ML VIAL ONE (13:34)
[2022-11-10] MEDS ORDERED: HALOPERIDOL LACTATE 5 MG/ML VIAL ONE (13:34)
[2022-11-11 07:02] VITALS: BP 144/64
[2022-11-11] MEDS: PANTOPRAZOLE SODIUM 40 MG DR TABLET PO SCH (08:38)
[2022-11-11] MEDS: HEPARIN SODIUM,PORCINE 5,000 UNITS/ML VIAL SQ SCH ×2 (08:39→16:11)
[2022-11-11 08:44] VITALS: BP 101/64
[2022-11-11] MEDS: OLANZapine 10 MG RAPDIS TABLET PO SCH ×2 (12:04→17:55)
[2022-11-11 19:25] VITALS: BP 138/85
[2022-11-12] MEDS: HEPARIN SODIUM,PORCINE 5,000 UNITS/ML VIAL SQ SCH ×3 (00:15→16:26)
[2022-11-12 08:40] VITALS: BP 106/71
[2022-11-12] MEDS: PANTOPRAZOLE SODIUM 40 MG DR TABLET PO SCH (08:57)
[2022-11-12] MEDS: OLANZapine 10 MG RAPDIS TABLET PO SCH ×2 (12:18→18:00)
[2022-11-12 15:41] VITALS: BP 119/72
[2022-11-12] MEDS ORDERED: DiphenhydrAMINE HCL 50 MG/ML VIAL ONE (17:59)
[2022-11-12] MEDS ORDERED: DiphenhydrAMINE HCL 50 MG/ML VIAL IM ONE (18:00)
[2022-11-12] MEDS ORDERED: LORazepam 2 MG/ML VIAL ONE (18:00)
[2022-11-12] MEDS ORDERED: HALOPERIDOL LACTATE 5 MG/ML VIAL IM ONE (18:00)
[2022-11-12] MEDS ORDERED: LORazepam 2 MG/ML VIAL IM ONE (18:00)
[2022-11-12] MEDS ORDERED: HALOPERIDOL LACTATE 5 MG/ML VIAL ONE (18:00)
[2022-11-13 05:00] VITALS: BP 111/62
[2022-11-13] MEDS: PANTOPRAZOLE SODIUM 40 MG DR TABLET PO SCH (08:24)
[2022-11-13] MEDS: HEPARIN SODIUM,PORCINE 5,000 UNITS/ML VIAL SQ SCH ×4 (08:24→23:31)
[2022-11-13 08:26] VITALS: BP 120/69
[2022-11-13] MEDS ORDERED: LORazepam 2 MG/ML VIAL IM ONE (10:15)
[2022-11-13] MEDS ORDERED: DiphenhydrAMINE HCL 50 MG/ML VIAL IM ONE (10:15)
[2022-11-13] MEDS ORDERED: HALOPERIDOL LACTATE 5 MG/ML VIAL IM ONE (10:15)
[2022-11-13] MEDS: OLANZapine 10 MG RAPDIS TABLET PO SCH ×2 (12:17→17:52)
[2022-11-13 15:12] VITALS: BP 119/68
[2022-11-13 20:24] VITALS: BP 117/67
[2022-11-14] MEDS: ACETAMINOPHEN 325 MG TABLET PO PRN ×2 (00:45→18:07)
[2022-11-14] MEDS: ZOLPIDEM TARTRATE 5 MG TABLET PO PRN (00:45)
[2022-11-14] MEDS: HEPARIN SODIUM,PORCINE 5,000 UNITS/ML VIAL SQ SCH ×2 (08:00→16:43)
[2022-11-14] MEDS: PANTOPRAZOLE SODIUM 40 MG DR TABLET PO SCH (08:27)
[2022-11-14] MEDS ORDERED: HALOPERIDOL LACTATE 5 MG/ML VIAL ONE (11:57)
[2022-11-14] MEDS ORDERED: DiphenhydrAMINE HCL 50 MG/ML VIAL ONE (11:57)
[2022-11-14] MEDS ORDERED: LORazepam 2 MG/ML VIAL ONE (11:57)
[2022-11-14] MEDS ORDERED: HALOPERIDOL LACTATE 5 MG/ML VIAL IM ONE (12:00)
[2022-11-14] MEDS ORDERED: DiphenhydrAMINE HCL 50 MG/ML VIAL IM ONE (12:00)
[2022-11-14] MEDS ORDERED: LORazepam 2 MG/ML VIAL IM ONE (12:00)
[2022-11-14] MEDS: OLANZapine 10 MG RAPDIS TABLET PO SCH ×2 (12:07→16:43)
[2022-11-14 16:44] VITALS: BP 114/72
[2022-11-15] MEDS: HEPARIN SODIUM,PORCINE 5,000 UNITS/ML VIAL SQ SCH ×3 (08:00→16:00)
[2022-11-15] MEDS: PANTOPRAZOLE SODIUM 40 MG DR TABLET PO SCH (08:05)
[2022-11-15 08:11] VITALS: BP 127/77
[2022-11-15] MEDS: OLANZapine 10 MG RAPDIS TABLET PO SCH ×3 (12:00→18:44)
[2022-11-15] MEDS ORDERED: LORazepam 2 MG/ML VIAL ONE (18:00)
[2022-11-15] MEDS ORDERED: HALOPERIDOL LACTATE 5 MG/ML VIAL ONE (18:01)
[2022-11-15] MEDS ORDERED: DiphenhydrAMINE HCL 50 MG/ML VIAL ONE (18:01)
[2022-11-15] MEDS ORDERED: DiphenhydrAMINE HCL 50 MG/ML VIAL IM ONE (18:15)
[2022-11-15] MEDS ORDERED: LORazepam 2 MG/ML VIAL IM ONE (18:15)
[2022-11-15] MEDS ORDERED: HALOPERIDOL LACTATE 5 MG/ML VIAL IM ONE (18:15)
[2022-11-16] MEDS: HEPARIN SODIUM,PORCINE 5,000 UNITS/ML VIAL SQ SCH ×5 (08:00→19:31)
[2022-11-16 08:02] VITALS: BP 127/74
[2022-11-16] MEDS: PANTOPRAZOLE SODIUM 40 MG DR TABLET PO SCH (08:48)
[2022-11-16] MEDS: OLANZapine 10 MG RAPDIS TABLET PO SCH ×2 (11:32→17:35)
[2022-11-16] MEDS: ACETAMINOPHEN 325 MG TABLET PO PRN (18:34)
[2022-11-16] MEDS: ZOLPIDEM TARTRATE 5 MG TABLET PO PRN (19:31)
[2022-11-16 20:38] VITALS: BP 139/61
[2022-11-17] MEDS: HEPARIN SODIUM,PORCINE 5,000 UNITS/ML VIAL SQ SCH ×2 (08:43→16:00)
[2022-11-17] MEDS: PANTOPRAZOLE SODIUM 40 MG DR TABLET PO SCH (08:43)
[2022-11-17] MEDS: OLANZapine 10 MG RAPDIS TABLET PO SCH ×2 (12:03→17:36)
[2022-11-17 20:09] VITALS: BP 122/65
[2022-11-17] MEDS: ZOLPIDEM TARTRATE 5 MG TABLET PO PRN (20:11)
[2022-11-17] MEDS: ACETAMINOPHEN 325 MG TABLET PO PRN (22:58)
[2022-11-18] MEDS: HEPARIN SODIUM,PORCINE 5,000 UNITS/ML VIAL SQ SCH ×4 (08:00→23:08)
[2022-11-18] MEDS: PANTOPRAZOLE SODIUM 40 MG DR TABLET PO SCH (08:44)
[2022-11-18] MEDS: OLANZapine 10 MG RAPDIS TABLET PO SCH ×2 (11:55→17:46)
[2022-11-18] MEDS: ACETAMINOPHEN 325 MG TABLET PO PRN ×2 (18:34→23:34)
[2022-11-18] MEDS: ZOLPIDEM TARTRATE 5 MG TABLET PO PRN (18:58)
[2022-11-18 19:40] VITALS: BP 135/77
[2022-11-19] MEDS: HEPARIN SODIUM,PORCINE 5,000 UNITS/ML VIAL SQ SCH ×2 (08:00→16:00)
[2022-11-19] MEDS: PANTOPRAZOLE SODIUM 40 MG DR TABLET PO SCH (08:18)
[2022-11-19 08:38] VITALS: BP 123/74
[2022-11-19] MEDS: OLANZapine 10 MG RAPDIS TABLET PO SCH ×2 (12:00→18:00)
[2022-11-19] MEDS ORDERED: HALOPERIDOL LACTATE 5 MG/ML VIAL ONE (14:54)
[2022-11-19] MEDS ORDERED: DiphenhydrAMINE HCL 50 MG/ML VIAL ONE (14:54)
[2022-11-19] MEDS ORDERED: LORazepam 2 MG/ML VIAL ONE (14:54)
[2022-11-19] MEDS ORDERED: LORazepam 2 MG/ML VIAL IM ONE (15:00)
[2022-11-19] MEDS ORDERED: DiphenhydrAMINE HCL 50 MG/ML VIAL IM ONE (15:00)
[2022-11-19] MEDS ORDERED: HALOPERIDOL LACTATE 5 MG/ML VIAL IM ONE (15:00)
[2022-11-19] MEDS: ZOLPIDEM TARTRATE 5 MG TABLET PO PRN (21:17)
[2022-11-19] MEDS: ACETAMINOPHEN 325 MG TABLET PO PRN (21:19)
[2022-11-19 21:25] VITALS: BP 133/73
[2022-11-20] MEDS: HEPARIN SODIUM,PORCINE 5,000 UNITS/ML VIAL SQ SCH ×4 (08:06→23:44)
[2022-11-20] MEDS: PANTOPRAZOLE SODIUM 40 MG DR TABLET PO SCH (09:00)
[2022-11-20 10:24] LABS: COVID AG,FIA SOURCE NASAL SWAB
[2022-11-20] MEDS: OLANZapine 10 MG RAPDIS TABLET PO SCH ×3 (12:00→18:01)
[2022-11-21 01:55] VITALS: BP 123/78
[2022-11-21] MEDS: ZOLPIDEM TARTRATE 5 MG TABLET PO PRN (01:57)
[2022-11-21 08:07] VITALS: BP 127/61
[2022-11-21] MEDS: HEPARIN SODIUM,PORCINE 5,000 UNITS/ML VIAL SQ SCH ×2 (08:43→16:00)
[2022-11-21] MEDS: PANTOPRAZOLE SODIUM 40 MG DR TABLET PO SCH (08:43)
[2022-11-21] MEDS: ACETAMINOPHEN 325 MG TABLET PO PRN (10:07)
[2022-11-21] MEDS: OLANZapine 10 MG RAPDIS TABLET PO SCH ×2 (12:00→13:52)
[2022-11-22] MEDS: HEPARIN SODIUM,PORCINE 5,000 UNITS/ML VIAL SQ SCH ×3 (08:00→16:33)
[2022-11-22] MEDS: PANTOPRAZOLE SODIUM 40 MG DR TABLET PO SCH (09:21)
[2022-11-22 10:35] VITALS: BP 120/71
[2022-11-22] MEDS: OLANZapine 10 MG RAPDIS TABLET PO SCH ×2 (12:15→17:47)
[2022-11-22] MEDS: ACETAMINOPHEN 325 MG TABLET PO PRN (16:28)
[2022-11-23 04:38] VITALS: BP 111/60
[2022-11-23 08:00] VITALS: BP 110/65
[2022-11-23] MEDS: PANTOPRAZOLE SODIUM 40 MG DR TABLET PO SCH (08:54)
[2022-11-23] MEDS: HEPARIN SODIUM,PORCINE 5,000 UNITS/ML VIAL SQ SCH ×3 (08:55→16:00)
[2022-11-23] MEDS: OLANZapine 10 MG RAPDIS TABLET PO SCH ×2 (11:51→18:03)
[2022-11-23] MEDS ORDERED: LORazepam 2 MG/ML VIAL IM ONE (14:45)
[2022-11-23] MEDS ORDERED: DiphenhydrAMINE HCL 50 MG/ML VIAL IM ONE (14:45)
[2022-11-23] MEDS ORDERED: HALOPERIDOL LACTATE 5 MG/ML VIAL IM ONE (14:45)
[2022-11-24 03:21] VITALS: BP 149/73
[2022-11-24] MEDS: HEPARIN SODIUM,PORCINE 5,000 UNITS/ML VIAL SQ SCH ×2 (08:17)
[2022-11-24] MEDS: PANTOPRAZOLE SODIUM 40 MG DR TABLET PO SCH (08:17)
[2022-11-24] MEDS: OLANZapine 10 MG RAPDIS TABLET PO SCH (11:57)
[2022-11-24] MEDS ORDERED: ACET-784 PO (13:45)
[2022-11-24] MEDS ORDERED: LORazepam 2 MG/ML VIAL IM ONE (13:45)
== END 2022-11-24 16:13 | DRG 923 ==
LOC: EMS 13:04 → 6S 15:17
PROVIDERS: ADMIT Hospitalist; ATTEND Hospitalist
DX: T73.0XXA Starvation, initial encounter (principal); F33.3 Major depressive disorder, recurrent, severe with psychotic symptoms; E87.1 Hypo-osmolality and hyponatremia; R62.7 Adult failure to thrive; F29 Unspecified psychosis not due to a substance or known physiological condition; F94.0 Selective mutism; F79 Unspecified intellectual disabilities; X58.XXXA Exposure to other specified factors, initial encounter; Z20.822 Contact with and (suspected) exposure to COVID-19; Z79.899 Other long term (current) drug therapy; Z68.22 Body mass index [BMI] 22.0-22.9, adult; Z91.148 Patient's other noncompliance with medication regimen for other reason
CPT/HCPCS: 70450; 71045; 80053; 85025; 87081; 99285; G0480; J1200; J1630; J1644; J2060; J7040; 36415-L1; 36415-TC

== ENCOUNTER 2023-11-29 14:34 | Inpatient (IN) | payer OTHER ==
[~2023-11-29] VITALS: Ht 180.3 cm; Wt 90.0 kg
[~2023-11-29 14:34] MED LIST: LORA2I IJ; OLAN10TA74 PO
[2023-11-29 16:16] LABS: BASOPHILS % (AUTO) 0.5 % (0.0-2.0); EOSINOPHILS % (AUTO) 2.2 % (1.0-6.0); HEMATOCRIT 43.8 % (41-53); HEMOGLOBIN 14.8 g/dL (13.5-17.5); LYMPHOCYTES # (AUTO) 1.7 K/uL (1.0-4.8); LYMPHOCYTES % (AUTO) 23.3 % (22.0-44.0); MEAN CORPUSCULAR HGB CONC 33.8 G/dL (31.0-37.0); MEAN CORPUSCULAR VOLUME 89 fL (80-100); MONOCYTES # (AUTO) 0.6 K/uL (0.1-1.0); NEUTROPHILS # (AUTO) 4.9 K/uL (1.8-7.7); PLATELET COUNT (AUTO) 196 K/uL (150-450); RED BLOOD CELL COUNT(AUTO) 4.94 MIL/uL (4.50-5.90); RED CELL DISTRIBUTION WIDTH 12.6 % (11.5-14.5); WHITE BLOOD COUNT (AUTO) 7.5 K/uL (4.5-11.0)
[2023-11-29 16:21] LABS: ANION GAP 10 mmol/L (8-16); CARBON DIOXIDE 28 mmol/L (22-29); CHLORIDE 103 mmol/L (98-107); CREATININE 0.97 mg/dL (0.60-1.30); GLOMERULAR FILTR. RATE CALC > 60 mL/min (>60); GLUCOSE,RANDOM 85 mg/dL (70-110); POTASSIUM 4.2 mmol/L (3.5-5.1); SODIUM SERUM 141 mmol/L (136-145); UREA NITROGEN, BLOOD 15 mg/dL (7-18)
[2023-11-29 16:27] LABS: ALANINE AMINOTRANSFERASE 21 U/L (12-78); ALBUMIN 4.1 g/dL (3.4-5.0); ALKALINE PHOSPHATASE 95 U/L (46-116); ASPARTATE AMINOTRANSFERASE 15 U/L (15-37); TOTAL PROTEIN, SERUM 7.9 g/dL (6.4-8.2)
[2023-11-29 16:45] LABS: ALCOHOL, BLOOD (SERUM) < 3 mg/dL (0-10)
[2023-11-29] MEDS ORDERED: HYDROmorphone HCL 2 MG/ML SYRINGE IVP ONE (16:45)
[2023-11-29] MEDS: OLANZapine 10 MG TABLET PO ONE (17:11)
[2023-11-29 17:43] LABS: COVID AG,FIA SOURCE NASAL SWAB
[2023-11-29 18:14] LABS: SARS-COV2 (COVID) ANTIGEN,FIA Negative (Negative)
[2023-11-29 23:22] VITALS: BP 119/73; PULSE 59; RESP 18; TEMP 98.1
[2023-11-30] MEDS: MELATONIN 3 MG TABLET PO PRN (01:57)
[2023-11-30 04:42] VITALS: BP 112/74; PULSE 56; RESP 18; TEMP 98
[2023-11-30 05:25] LABS: PH,URINE DRUG SCREEN 7.5 (5.0-8.0)
[2023-11-30 05:32] LABS: ALCOHOL, URINE DRUG SCREEN NEGATIVE (NEGATIVE); AMPHET/METH SCREEN,URINE NEGATIVE (NEGATIVE); BARBITURATE SCREEN, URINE NEGATIVE (NEGATIVE); BENZODIAZEPINES SCREEN,URINE NEGATIVE (NEGATIVE); CANNABINOID SCREEN,URINE NEGATIVE (NEGATIVE); COCAINE SCREEN,URINE NEGATIVE (NEGATIVE); METHADONE SCREEN, URINE NEGATIVE (NEGATIVE); OPIATE SCREEN,URINE NEGATIVE (NEGATIVE); PHENCYCLIDINE SCREEN,URINE NEGATIVE (NEGATIVE)
[2023-11-30 08:52] VITALS: BP 104/51; PULSE 61; RESP 20; TEMP 97.8
[2023-11-30 19:50] VITALS: BP 116/57; PULSE 64; RESP 18; TEMP 98.1
[2023-12-01 08:44] VITALS: BP 114/78; PULSE 68; RESP 18; TEMP 97.8
[2023-12-01] MEDS: LORazepam 1 MG TABLET PO SCH (14:14)
[2023-12-01] MEDS: OLANZapine 10 MG TABLET PO SCH (15:02)
[2023-12-01 19:16] VITALS: BP 116/52; PULSE 66; RESP 20; TEMP 98
[2023-12-02 04:13] VITALS: BP 116/65; PULSE 63; RESP 18; TEMP 98.5
[2023-12-02 09:11] VITALS: BP 119/64; PULSE 86; RESP 18; TEMP 97.3
[2023-12-02 21:10] VITALS: BP 125/60; PULSE 95; RESP 18; TEMP 97.6
[2023-12-03 05:09] VITALS: BP 100/59; PULSE 72; RESP 18; TEMP 97.5
[2023-12-03 10:07] VITALS: BP 125/67; PULSE 71; RESP 18; TEMP 97.8
[2023-12-03 19:59] VITALS: BP 121/63; PULSE 83; RESP 18; TEMP 97.8
[2023-12-04 04:47] VITALS: BP 109/66; PULSE 85; RESP 18; TEMP 97.6
[2023-12-04 19:38] VITALS: BP 111/56; PULSE 93; RESP 19; TEMP 98.8
[2023-12-05 05:28] VITALS: BP 112/57; PULSE 80; RESP 19; TEMP 97.8
[2023-12-05 08:19] VITALS: BP 114/58; PULSE 80; RESP 18; TEMP 97.6
[2023-12-05] MEDS ORDERED: LORA-1000 PO (13:29)
[2023-12-05] MEDS ORDERED: MELA3TAB89 PO (13:29)
== END 2023-12-05 14:44 | DRG 885 ==
LOC: EMS 14:34 → 6S 20:26
PROVIDERS: ADMIT Hospitalist; ATTEND Hospitalist
DX: F25.1 Schizoaffective disorder, depressive type (principal); F06.1 Catatonic disorder due to known physiological condition; F94.0 Selective mutism; F29 Unspecified psychosis not due to a substance or known physiological condition; Z20.822 Contact with and (suspected) exposure to COVID-19; Z91.199 Patient's noncompliance with other medical treatment and regimen due to unspecified reason
CPT/HCPCS: 80053; 80307; 85025; 99285; G0480